=== PATIENT | male | born 1950 | race Two or more races ===

== ENCOUNTER 2022-09-24 01:25 | Inpatient (IN) | payer OTHER ==
[2022-09-24] VITALS (10 sets, daily range): BP systolic 125–174; BP diastolic 57–90
[~2022-09-24] VITALS: Ht 177.8 cm; Wt 68.3 kg
[2022-09-24] MEDS ORDERED: IPRATROPIUM BROM 0.5 MG/2.5ML INH SOL NEB ONE (02:30)
[2022-09-24] MEDS ORDERED: ALBUTEROL SULF 2.5 MG/0.5ML(0.5%) NEB SOLN NEB ONE (02:30)
[2022-09-24 02:56] LABS: Basophils # (auto) 0.1 10 ^3/uL (0-0.2); Basophils % (auto) 1.2 % (0.0-2.0); Eosinophils # (auto) 0.3 10 ^3/uL (0-0.8); Hematocrit 17.8 % (41.0-53.0); Lymphocytes # (auto) 0.8 10 ^3/uL (0.4-5.4); Lymphocytes % (auto) 9.6 % (10.0-50.0); Mean Corpuscular Hemoglobin 22.4 pg (28.0-32.0); Mean Corpuscular Hgb Conc. 30.4 g/dL (32.0-36.0); Mean Corpuscular Volume 73.9 fL (80.0-100.0); Monocytes # (auto) 0.6 10 ^3/uL (0-1.3); Monocytes % (auto) 7.4 % (0.0-12.0); Neutrophils # (auto) 6.8 10 ^3/uL (1.6-8.6); Neutrophils % (auto) 78.8 % (37.0-80.0); Nucleated Red Blood Cells % 0.2 %; Red Blood Cells 2.41 10^6/uL (4.5-5.90); White Blood Cell 8.6 10^3/uL (4.4-10.8)
[2022-09-24 02:58] LABS: Hemoglobin 5.4 g/dL (13.5-17.5)
[2022-09-24 03:12] LABS: INR 0.98 (0.9-1.15); Partial Thromboplastin Time 27.4 sec (24.6-33.4)
[2022-09-24 03:15] LABS: Albumin 3.2 g/dL (3.4-5.0); Calcium 8.9 mg/dL (8.5-10.1); Potassium 4.3 mmol/L (3.5-5.1)
[2022-09-24 03:19] LABS: BUN/Creatinine Ratio 19.1; Bilirubin, Total 0.3 mg/dL (0.2-1.0); Total Protein 7.4 g/dL (6.4-8.2)
[2022-09-24] MEDS ORDERED: hydrALAZINE HCL 20 MG/ML VL IV PRN (06:30)
[2022-09-24] MEDS ORDERED: DEXTROSE (50%) 50ML SYRG IV PRN (06:30)
[2022-09-24] MEDS ORDERED: MORPHINE SULFATE INJ 2 MG/ml SYRG IV PRN (06:30)
[2022-09-24] MEDS ORDERED: ONDANSETRON HCL 4 MG/2 ML VIAL IV PRN (06:30)
[2022-09-24] MEDS ORDERED: NITROGLYCERIN 0.4 MG SL TAB SL PRN (06:30)
[2022-09-24] MEDS ORDERED: SODIUM CHLORIDE 0.9% 1,000 ML IV SCH (06:30)
[2022-09-24] MEDS ORDERED: IPRATROPIUM BROM 0.5 MG/2.5ML INH SOL NEB PRN (06:30)
[2022-09-24] MEDS ORDERED: ALBUTEROL SULF 2.5 MG/0.5ML(0.5%) NEB SOLN NEB PRN (06:30)
[2022-09-24] MEDS ORDERED: ALBUTEROL SULF 2.5 MG/0.5ML(0.5%) NEB SOLN ONE (06:59)
[2022-09-24] MEDS ORDERED: IPRATROPIUM BROM 0.5 MG/2.5ML INH SOL ONE (06:59)
[2022-09-24 07:10] LABS: % Iron Saturation 3.1 % (20-55)
[2022-09-24] MEDS ORDERED: VANCOMYCIN PER PHARMACY 0 MG IV SCH (07:45)
[2022-09-24 08:16] LABS: Lactic Acid w/Reflex 2.1 mmol/L (0.4-2.0)
[2022-09-24] MEDS ORDERED: PIPERACILLIN-TAZOB 2.25GM 50 ML IV SCH ×2 (09:00→12:00)
[2022-09-24] MEDS ORDERED: cefTRIAXone 1GM/50ML D5W 50 ML IV SCH (09:00)
[2022-09-24] MEDS ORDERED: VANCOMYCIN 1GM/250ML 250 ML IV ONE (10:00)
[2022-09-24 10:32] LABS: BUN/Creatinine Ratio 18.2
[2022-09-24] MEDS: SODIUM CHLORIDE 0.9% 1,000 ML IV SCH ×2 (13:17→23:00)
[2022-09-24] MEDS: ACCU-CHEK COMFORT CURVE STRIP VI SCH ×3 (13:29→23:49)
[2022-09-24] MEDS: InsuLIN REG 1unit/0.01ml Soln (100units/ml) SC SCH ×3 (13:30→23:49)
[2022-09-24] MEDS: CEFEPIME 2 GM in SODIUM CHL 0.9% 50 ML IV SCH (14:23)
[2022-09-24] MEDS ORDERED: GOLYTELY 4L KIT PO ONE (14:30)
[2022-09-24 15:08] LABS: Basophils # (auto) 0.1 10 ^3/uL (0-0.2); Eosinophils # (auto) 0.1 10 ^3/uL (0-0.8); Eosinophils % (auto) 1.7 % (0.0-7.0); Hematocrit 27.8 % (41.0-53.0); Hemoglobin 8.6 g/dL (13.5-17.5); Lymphocytes # (auto) 0.8 10 ^3/uL (0.4-5.4); Lymphocytes % (auto) 9.8 % (10.0-50.0); Mean Corpuscular Hemoglobin 24.1 pg (28.0-32.0); Mean Corpuscular Hgb Conc. 30.8 g/dL (32.0-36.0); Mean Corpuscular Volume 78.4 fL (80.0-100.0); Monocytes % (auto) 12.5 % (0.0-12.0); Neutrophils # (auto) 5.8 10 ^3/uL (1.6-8.6); Nucleated Red Blood Cells % 0.2 %; Red Blood Cells 3.55 10^6/uL (4.5-5.90); Red Cell Distribution Width 17.8 % (11.8-14.3); White Blood Cell 7.7 10^3/uL (4.4-10.8)
[2022-09-24] MEDS: hydrALAZINE HCL 20 MG/ML VL IV PRN (15:32)
[2022-09-24 15:59] LABS: Urine Bacteria NONE SEEN /hpf (None Seen); Urine Blood Negative /uL (Negative); Urine WBC <1 /hpf (0 - 3)
[2022-09-25 05:08] VITALS: BP 161/82
[2022-09-25] MEDS: ACCU-CHEK COMFORT CURVE STRIP VI SCH ×3 (05:54→17:48)
[2022-09-25] MEDS: hydrALAZINE HCL 20 MG/ML VL IV PRN (05:54)
[2022-09-25] MEDS: InsuLIN REG 1unit/0.01ml Soln (100units/ml) SC SCH ×3 (06:00→17:48)
[2022-09-25] MEDS: SODIUM CHLORIDE 0.9% 1,000 ML IV SCH ×2 (06:30→16:30)
[2022-09-25 07:20] LABS: Potassium 3.6 mmol/L (3.5-5.1)
[2022-09-25 07:21] LABS: Basophils # (auto) 0.1 10 ^3/uL (0-0.2); Basophils % (auto) 0.7 % (0.0-2.0); Eosinophils # (auto) 0.2 10 ^3/uL (0-0.8); Hematocrit 26.8 % (41.0-53.0); Hemoglobin 8.6 g/dL (13.5-17.5); Lymphocytes % (auto) 12.4 % (10.0-50.0); Mean Corpuscular Hemoglobin 24.2 pg (28.0-32.0); Mean Corpuscular Hgb Conc. 32.2 g/dL (32.0-36.0); Mean Corpuscular Volume 75.1 fL (80.0-100.0); Monocytes % (auto) 11.6 % (0.0-12.0); Neutrophils % (auto) 72.3 % (37.0-80.0); Nucleated Red Blood Cells % 0.2 %; Red Blood Cells 3.57 10^6/uL (4.5-5.90); White Blood Cell 8.3 10^3/uL (4.4-10.8)
[2022-09-25 07:27] LABS: Albumin 3.3 g/dL (3.4-5.0); BUN/Creatinine Ratio 16.4; Calcium 9.1 mg/dL (8.5-10.1)
[2022-09-25 07:30] LABS: Bilirubin, Total 0.4 mg/dL (0.2-1.0); Total Protein 6.9 g/dL (6.4-8.2)
[2022-09-25 09:00] VITALS: BP 162/69
[2022-09-25] MEDS ORDERED: NALOXONE HCL 0.4 MG/ML VIAL ONE (10:53)
[2022-09-25] MEDS ORDERED: FLUMAZENIL 0.1 MG/ML INJ 10ML MDV IV ONE (10:54)
[2022-09-25] MEDS ORDERED: LIDOCAINE VISCOUS 2% 15ML UD ONE (10:54)
[2022-09-25] MEDS ORDERED: SODIUM CHLORIDE LOCK 10 ML ONE (10:54)
[2022-09-25] MEDS ORDERED: diphenhdrAMINE HCL 50 MG/1 ML VL ONE (10:55)
[2022-09-25] MEDS ORDERED: VANCOMYCIN 750mg/250ml 250 ML IV ONE (11:00)
[2022-09-25] MEDS: MIDAZOLAM HCL 5 MG/ML-1ML VIAL ONE ×2 (11:20→11:34)
[2022-09-25] MEDS: fentaNYL CITRATE 100 MCG/2 ML VL ONE ×2 (11:20→11:34)
[2022-09-25] MEDS ORDERED: GOLYTELY 4L KIT PO ONE (11:45)
[2022-09-25 17:00] VITALS: BP 160/95
[2022-09-25] MEDS: CEFEPIME 2 GM in SODIUM CHL 0.9% 50 ML IV SCH (17:27)
[2022-09-25] MEDS ORDERED: ALBUTEROL SULF 2.5 MG/0.5ML(0.5%) NEB SOLN NEB PRN (18:00)
[2022-09-25] MEDS ORDERED: IPRATROPIUM BROM 0.5 MG/2.5ML INH SOL NEB PRN (18:00)
[2022-09-26] MEDS: ACCU-CHEK COMFORT CURVE STRIP VI SCH ×3 (00:13→12:00)
[2022-09-26] MEDS: SODIUM CHLORIDE 0.9% 1,000 ML IV SCH ×2 (02:30→12:30)
[2022-09-26 05:00] VITALS: BP 170/81
[2022-09-26] MEDS: InsuLIN REG 1unit/0.01ml Soln (100units/ml) SC SCH ×3 (05:41→12:00)
[2022-09-26] MEDS: ALBUTEROL SULF 2.5 MG/0.5ML(0.5%) NEB SOLN NEB SCH ×4 (05:52→23:35)
[2022-09-26 06:19] LABS: Basophils # (auto) 0 10 ^3/uL (0-0.2); Eosinophils # (auto) 0.4 10 ^3/uL (0-0.8); Lymphocytes # (auto) 0.6 10 ^3/uL (0.4-5.4); Monocytes # (auto) 0.9 10 ^3/uL (0-1.3); Neutrophils # (auto) 5.1 10 ^3/uL (1.6-8.6); Nucleated Red Blood Cells % 0.1 %
[2022-09-26 06:22] LABS: Basophils % (auto) 0.6 % (0.0-2.0); Eosinophils % (auto) 5.7 % (0.0-7.0); Hematocrit 24.2 % (41.0-53.0); Hemoglobin 7.8 g/dL (13.5-17.5); Lymphocytes % (auto) 8.7 % (10.0-50.0); Mean Corpuscular Hemoglobin 24.5 pg (28.0-32.0); Mean Corpuscular Hgb Conc. 32.2 g/dL (32.0-36.0); Red Blood Cells 3.19 10^6/uL (4.5-5.90); Red Cell Distribution Width 18.1 % (11.8-14.3); White Blood Cell 7.1 10^3/uL (4.4-10.8)
[2022-09-26 09:00] VITALS: BP 172/89
[2022-09-26] MEDS ORDERED: ADENOSINE 59 MG in GIVE UN-DILUTED 0 ML IV STA (10:15)
[2022-09-26 10:17] VITALS: BP 175/87
[2022-09-26 11:11] LABS: Alanine Aminotransferase 25 U/L (16-61); Albumin 3.1 g/dL (3.4-5.0); Anion Gap 15 (5-15); Aspartate Aminotransferase 29 U/L (15-37); BUN/Creatinine Ratio 14.4; Blood Urea Nitrogen 30 mg/dL (7-18); Calcium 8.6 mg/dL (8.5-10.1); Carbon Dioxide 22 mmol/L (21-32); Chloride 107 mmol/L (98-107); GFR African American 40 mL/min; GFR Non-African American 33 mL/min; Glucose 86 mg/dL (74-106); Sodium 144 mmol/L (136-145)
[2022-09-26 11:13] LABS: Alkaline Phosphatase 51 U/L (45-117); Bilirubin, Total 0.4 mg/dL (0.2-1.0); Total Protein 6.5 g/dL (6.4-8.2)
[2022-09-26] MEDS: IPRATROPIUM BROM 0.5 MG/2.5ML INH SOL NEB SCH ×3 (11:15→23:35)
[2022-09-26 14:00] VITALS: BP 149/92
[2022-09-26] MEDS: CEFEPIME 2 GM in SODIUM CHL 0.9% 50 ML IV SCH (14:55)
[2022-09-26] MEDS: POTASSIUM CHL 20MEQ/100ML 100 ML IV SCH ×2 (14:56→17:02)
[2022-09-26] MEDS ORDERED: VANCOMYCIN 750mg/250ml 250 ML IV ONE (15:30)
[2022-09-26 22:00] VITALS: BP 156/93
[2022-09-26] MEDS ORDERED: POTASSIUM CHL 20MEQ/100ML 100 ML IV SCH (23:00)
[2022-09-27] VITALS (7 sets, daily range): BP systolic 149–188; BP diastolic 69–99
[2022-09-27] MEDS: ACCU-CHEK COMFORT CURVE STRIP VI SCH ×4 (00:26→18:12)
[2022-09-27] MEDS: SODIUM CHLORIDE 0.9% 1,000 ML IV SCH ×3 (00:27→23:34)
[2022-09-27 05:30] LABS: Basophils # (auto) 0.1 10 ^3/uL (0-0.2); Basophils % (auto) 0.6 % (0.0-2.0); Eosinophils # (auto) 0.4 10 ^3/uL (0-0.8); Eosinophils % (auto) 5.2 % (0.0-7.0); Hematocrit 24.3 % (41.0-53.0); Hemoglobin 7.8 g/dL (13.5-17.5); Lymphocytes # (auto) 0.8 10 ^3/uL (0.4-5.4); Lymphocytes % (auto) 9.3 % (10.0-50.0); Mean Corpuscular Hemoglobin 24.7 pg (28.0-32.0); Mean Corpuscular Hgb Conc. 32.1 g/dL (32.0-36.0); Mean Corpuscular Volume 76.7 fL (80.0-100.0); Monocytes % (auto) 12.5 % (0.0-12.0); Neutrophils # (auto) 5.9 10 ^3/uL (1.6-8.6); Neutrophils % (auto) 72.4 % (37.0-80.0); Red Blood Cells 3.16 10^6/uL (4.5-5.90); Red Cell Distribution Width 18.7 % (11.8-14.3); White Blood Cell 8.2 10^3/uL (4.4-10.8)
[2022-09-27 05:58] LABS: Potassium 4.2 mmol/L (3.5-5.1)
[2022-09-27 06:00] LABS: Albumin 2.9 g/dL (3.4-5.0)
[2022-09-27] MEDS: InsuLIN REG 1unit/0.01ml Soln (100units/ml) SC SCH ×4 (06:00→18:00)
[2022-09-27 06:04] LABS: Bilirubin, Total 0.5 mg/dL (0.2-1.0); Total Protein 6.2 g/dL (6.4-8.2)
[2022-09-27] MEDS: ALBUTEROL SULF 2.5 MG/0.5ML(0.5%) NEB SOLN NEB SCH ×3 (06:43→19:41)
[2022-09-27] MEDS: IPRATROPIUM BROM 0.5 MG/2.5ML INH SOL NEB SCH ×3 (06:43→19:41)
[2022-09-27] MEDS ORDERED: GOLYTELY 4L KIT PO ONE (07:30)
[2022-09-27] MEDS: CEFEPIME 2 GM in SODIUM CHL 0.9% 50 ML IV SCH ×2 (14:24→22:00)
[2022-09-27] MEDS: hydrALAZINE HCL 20 MG/ML VL IV PRN (18:22)
[2022-09-27] MEDS: FLEET ENEMA(ADULT) 135 ML PR ONE ×2 (23:14→23:19)
[2022-09-28] MEDS: ACCU-CHEK COMFORT CURVE STRIP VI SCH ×3 (00:12→15:48)
[2022-09-28] MEDS: hydrALAZINE HCL 20 MG/ML VL IV PRN ×2 (00:22→16:50)
[2022-09-28] MEDS ORDERED: METOPROLOL TARTRATE 50 MG TAB PO ONE (02:30)
[2022-09-28] MEDS: SODIUM CHLORIDE 0.9% 1,000 ML IV SCH ×3 (04:30→17:33)
[2022-09-28 05:00] VITALS: BP 124/88
[2022-09-28] MEDS: InsuLIN REG 1unit/0.01ml Soln (100units/ml) SC SCH ×3 (05:33→12:00)
[2022-09-28 06:29] LABS: Eosinophils # (auto) 0.4 10 ^3/uL (0-0.8); Hemoglobin 8.2 g/dL (13.5-17.5)
[2022-09-28 06:32] LABS: Basophils # (auto) 0.1 10 ^3/uL (0-0.2); Basophils % (auto) 0.8 % (0.0-2.0); Eosinophils % (auto) 5.1 % (0.0-7.0); Hematocrit 25.7 % (41.0-53.0); Lymphocytes # (auto) 0.6 10 ^3/uL (0.4-5.4); Mean Corpuscular Hemoglobin 24.2 pg (28.0-32.0); Mean Corpuscular Volume 75.8 fL (80.0-100.0); Monocytes # (auto) 0.8 10 ^3/uL (0-1.3); Monocytes % (auto) 9.6 % (0.0-12.0); Neutrophils # (auto) 6.7 10 ^3/uL (1.6-8.6); Neutrophils % (auto) 77.5 % (37.0-80.0); Red Blood Cells 3.38 10^6/uL (4.5-5.90); Red Cell Distribution Width 18.5 % (11.8-14.3); White Blood Cell 8.7 10^3/uL (4.4-10.8)
[2022-09-28 07:01] LABS: Albumin 2.9 g/dL (3.4-5.0); BUN/Creatinine Ratio 10.2; Bilirubin, Total 0.6 mg/dL (0.2-1.0); Calcium 8.9 mg/dL (8.5-10.1); Potassium 3.5 mmol/L (3.5-5.1); Total Protein 6.2 g/dL (6.4-8.2)
[2022-09-28] MEDS: ALBUTEROL SULF 2.5 MG/0.5ML(0.5%) NEB SOLN NEB SCH ×3 (07:01→11:41)
[2022-09-28] MEDS: IPRATROPIUM BROM 0.5 MG/2.5ML INH SOL NEB SCH ×3 (07:01→11:41)
[2022-09-28 08:00] VITALS: BP 156/71
[2022-09-28 09:00] VITALS: BP 156/71
[2022-09-28] MEDS: CEFEPIME 2 GM in SODIUM CHL 0.9% 50 ML IV SCH (10:00)
[2022-09-28] MEDS ORDERED: VANCOMYCIN 1GM/250ML 250 ML IV ONE ×2 (10:30→11:00)
[2022-09-28] MEDS ORDERED: LEVO500T31 PO (12:14)
[2022-09-28] MEDS ORDERED: ATOR20TA50 PO (12:14)
[2022-09-28] MEDS ORDERED: MET25T PO (12:14)
[2022-09-28 13:00] VITALS: BP 156/76
== END 2022-09-28 18:05 | disposition home or self-care (01) | DRG 811 ==
LOC: ER 01:25 → EDBD 01:25 → EDSEX 01:25 → TELE 06:20 → EDBD 06:20 → TELE-WESTW 22:34
PROVIDERS: ADMIT Hospitalist; ATTEND Hospitalist
PROC: 30233N1 Transfusion of Nonautologous Red Blood Cells into Peripheral Vein, Percutaneous Approach (ICD-10-PCS; principal; 2022-09-24)
PROC: 0DJD8ZZ Inspection of Lower Intestinal Tract, Via Natural or Artificial Opening Endoscopic (ICD-10-PCS; 2022-09-25)
PROC: 0DB78ZX Excision of Stomach, Pylorus, Via Natural or Artificial Opening Endoscopic, Diagnostic (ICD-10-PCS; 2022-09-25 11:15)
DX: D50.9 Iron deficiency anemia, unspecified (principal); I21.A1 Myocardial infarction type 2; J18.9 Pneumonia, unspecified organism; J96.01 Acute respiratory failure with hypoxia; J90 Pleural effusion, not elsewhere classified; J98.11 Atelectasis; N17.9 Acute kidney failure, unspecified; K29.70 Gastritis, unspecified, without bleeding; N18.9 Chronic kidney disease, unspecified; E11.22 Type 2 diabetes mellitus with diabetic chronic kidney disease; E78.5 Hyperlipidemia, unspecified; I12.9 Hypertensive chronic kidney disease with stage 1 through stage 4 chronic kidney disease, or unspecified chronic kidney disease; F03.90 Unspecified dementia, unspecified severity, without behavioral disturbance, psychotic disturbance, mood disturbance, and anxiety; Z20.822 Contact with and (suspected) exposure to COVID-19
CPT/HCPCS: 36415; 36430; 36600; 43239; 45378; 71045; 71250; 76604; 78452; 80048; 80053; 80202; 81001; 82805; 82962; 83540; 83550; 83605; 83880; 84484; 85025; 85610; 85730; 86850; 86900; 86901; 86920; 87040; 87081; 87426; 87804; 93005; 93017; 93306; 94640; 94644; 96365; 96367; 99291; G0378; J0153; J1815; J2250; J2543; J3480